=== PATIENT | male | born 1970 | race African-American/Black ===

== ENCOUNTER 2024-09-20 03:38 | Inpatient (IN) | payer MEDICAID, OTHER ==
[2024-09-20] MEDS ORDERED: KETAMINE 100 MG/ML (5ML VIAL) ONE (03:50)
[2024-09-20] MEDS ORDERED: Rocuronium Bromide 10 MG/ML (10ML VIAL) ONE (03:51)
[2024-09-20] MEDS ORDERED: CALCIUM GLUC 1 GM/NS 50 ML IV Bag ONE (03:55)
[2024-09-20 04:01] LABS: #Basophils 0.12 10x3/uL (0.0-0.2); %Basophils 0.5 % (0.0-1.0); %Eosinophils 0.9 % (0.0-10.0); %Lymphocytes 6.2 % (21.0-51.0); %Monocytes 5.8 % (0.0-10.0); %Neutrophils 83.5 % (42.0-75.0); Hematocrit 44.9 % (42.0-52.0); Hemoglobin 14.6 g/dL (14.0-18.0); Mean Corpuscular HGB CONC 32.5 g/dL (32.0-36.0); Mean Corpuscular Hemoglobin 30.9 pg (27.0-31.0); Mean Corpuscular Volume 95.1 fL (78.0-98.0); Mean Platelet Volume 9.3 fL (7.4-10.4); Platelet Count 226 10x3/uL (130-400); RBC Distribution Width 13.2 % (11.5-14.5); Red Blood Cell (RBC) Count 4.72 mill/uL (4.70-6.10)
[2024-09-20] MEDS ORDERED: Boostrix 0.5 ML (Tdap) VIAL (>/=7 yrs of age) ONE (04:04)
[2024-09-20 04:14] LABS: INR-International Normal Ratio 1.1; PTT 25.3 sec (22.9-36.1); Prothrombin Time 14.6 sec (12.0-14.7)
[2024-09-20 04:32] LABS: ALT (SGPT) 13 U/L (8-55); AST (SGOT) 19 U/L (5-34); Albumin 3.8 g/dL (3.5-5.0); Alkaline Phosphatase 98 U/L (40-110); Anion Gap 26 mmol/L (10-20); BUN (Urea Nitrogen) 8 mg/dL (8.4-25.7); Bilirubin, Total 0.4 mg/dL (0.2-1.2); Calc. Creatinine Clearance 0 mL/min (70-130); Calcium 9.5 mg/dL (7.8-10.44); Carbon Dioxide 12 mmol/L (22-29); Chloride 100 mmol/L (98-107); Estimated GFR 55; Globulin 3.8 g/dL (2.4-3.5); Glucose 217 mg/dL (70-105); Potassium 3.2 mmol/L (3.5-5.1); Protein, Total 7.6 g/dL (6.0-8.3); Sodium 135 mmol/L (136-145)
[2024-09-20] MEDS ORDERED: Dexamethasone 20 MG/5 ML VIAL ONE (05:20)
[2024-09-20] MEDS ORDERED: PHENYLEPHRINE-NS 100 MCG/ML 10 ML SYRINGE ONE (05:20)
[2024-09-20] MEDS ORDERED: Glycopyrrolate 0.2 MG/ML 5 ML SYRINGE ONE (05:20)
[2024-09-20] MEDS ORDERED: Clindamycin/D5W 900 mg/50 ml Premix Bag ONE (05:47)
[2024-09-20] MEDS ORDERED: Vecuronium 10 MG VIAL ONE (08:52)
[2024-09-20] MEDS: Propofol 1,000 MG/100 ML VIAL IV PRN (09:15)
[2024-09-20] MEDS: Fentanyl CADD 100 ML IV SCH (09:15)
[2024-09-20] MEDS ORDERED: Ondansetron PF 4 MG/2 ML Vial IVP PRN (09:17)
[2024-09-20] MEDS ORDERED: hydrALAZINE 20 MG/ML VIAL SLOW IVP PRN (09:17)
[2024-09-20] MEDS ORDERED: Morphine 4 MG/ML VIAL SLOW IVP PRN (09:22)
[2024-09-20] MEDS: Piperacillin/Tazobactam 3.375 GM in Sodium Chloride 0.9% 100 ML IVPB SCH ×2 (10:27→13:07)
[2024-09-20] MEDS ORDERED: Fentanyl BOLUS 250 ML IVPB PRN (11:00)
[2024-09-20] MEDS ORDERED: Propofol BOLUS 1,000 MG/100 ML VIAL IV PRN (11:00)
[2024-09-20] MEDS ORDERED: DISCONTINUE PREVIOUS NARCOTIC PAIN MEDICATIONS AND BENZODIAZEPINES FS SCH (11:00)
[2024-09-20] MEDS ORDERED: Piperacillin/Tazobactam 3.375 GM in Sodium Chloride 0.9% 100 ML IVPB SCH (12:00)
[2024-09-20] MEDS: FLU (Fluarix Triv) TS24-25(6MOS UP)/PF 45 MCG/0.5 ML Syringe IM ONE (12:51)
[2024-09-20] MEDS: Lactated Ringer's 1,000 ML IV SCH (13:07)
[2024-09-20 15:56] LABS: Amphetamine Not Detected (NotDetected); Barbiturates Screen Not Detected (NotDetected); Benzodiazepine Screen Not Detected (NotDetected); Cocaine Metabolite Screen Detected (NotDetected); Methadone Not Detected (NotDetected); Methamphetamine Not Detected (NotDetected); Opiate Screen Not Detected (NotDetected); Oxycodone Screen Not Detected (NotDetected); Phencyclidine (PCP) Not Detected (NotDetected); THC/Cannabinoid Screen Detected (NotDetected); Tricyclic Screen Not Detected (NotDetected)
[2024-09-20 16:56] LABS: ALT (SGPT) 13 U/L (8-55); AST (SGOT) 36 U/L (5-34); Alkaline Phosphatase 65 U/L (40-110); Anion Gap 14 mmol/L (10-20); BUN (Urea Nitrogen) 10 mg/dL (8.4-25.7); Bilirubin, Total 0.9 mg/dL (0.2-1.2); Calc. Creatinine Clearance 74 mL/min (70-130); Carbon Dioxide 21 mmol/L (22-29); Chloride 104 mmol/L (98-107); Estimated GFR 81; Glucose 123 mg/dL (70-105); Potassium 5.3 mmol/L (3.5-5.1); Sodium 134 mmol/L (136-145)
[2024-09-20 18:23] LABS: #Basophils Less than 0.03 10x3/uL (0.0-0.2); #Eosinophils Less than 0.03 10x3/uL (0.0-0.7); %Basophils 0.1 % (0.0-1.0); %Lymphocytes 6.9 % (21.0-51.0); %Monocytes 7.8 % (0.0-10.0); %Neutrophils 84.6 % (42.0-75.0); Hematocrit 32.5 % (42.0-52.0); Mean Corpuscular HGB CONC 33.8 g/dL (32.0-36.0); Mean Corpuscular Hemoglobin 31.1 pg (27.0-31.0); Mean Corpuscular Volume 91.8 fL (78.0-98.0); Mean Platelet Volume 9.7 fL (7.4-10.4); Platelet Count 155 10x3/uL (130-400); RBC Distribution Width 13.8 % (11.5-14.5); Red Blood Cell (RBC) Count 3.54 mill/uL (4.70-6.10)
[2024-09-20] MEDS: Sodium Chloride 0.9% 1,000 ML IV SCH (18:25)
[2024-09-20 18:33] LABS: INR-International Normal Ratio 1.2; PTT 27.9 sec (22.9-36.1); Prothrombin Time 15.2 sec (12.0-14.7)
[2024-09-20] MEDS: Famotidine/PF 20 mg/2ml Vial SLOW IVP SCH (21:34)
[2024-09-21 05:31] LABS: #Basophils 0.04 10x3/uL (0.0-0.2); %Basophils 0.2 % (0.0-1.0); %Eosinophils 0.4 % (0.0-10.0); %Lymphocytes 12.5 % (21.0-51.0); %Monocytes 9.1 % (0.0-10.0); %Neutrophils 77.3 % (42.0-75.0); Hematocrit 29.6 % (42.0-52.0); Mean Corpuscular HGB CONC 33.8 g/dL (32.0-36.0); Mean Corpuscular Hemoglobin 31.6 pg (27.0-31.0); Mean Corpuscular Volume 93.7 fL (78.0-98.0); Mean Platelet Volume 10.1 fL (7.4-10.4); Platelet Count 145 10x3/uL (130-400); RBC Distribution Width 13.8 % (11.5-14.5); Red Blood Cell (RBC) Count 3.16 mill/uL (4.70-6.10)
[2024-09-21 05:46] LABS: ALT (SGPT) 10 U/L (8-55); AST (SGOT) 18 U/L (5-34); Albumin 2.7 g/dL (3.5-5.0); Alkaline Phosphatase 59 U/L (40-110); Anion Gap 11 mmol/L (10-20); BUN (Urea Nitrogen) 10 mg/dL (8.4-25.7); Bilirubin, Total 0.7 mg/dL (0.2-1.2); Calc. Creatinine Clearance 79 mL/min (70-130); Calcium 8.1 mg/dL (7.8-10.44); Carbon Dioxide 24 mmol/L (22-29); Chloride 107 mmol/L (98-107); Estimated GFR 87; Globulin 2.8 g/dL (2.4-3.5); Glucose 97 mg/dL (70-105); Potassium 3.7 mmol/L (3.5-5.1); Protein, Total 5.5 g/dL (6.0-8.3); Sodium 138 mmol/L (136-145)
[2024-09-21] MEDS: Enoxaparin 40 MG (0.4 mL) SYRINGE SC SCH (09:33)
[2024-09-21] MEDS ORDERED: Iopamidol-370 76% 500 ML MDV (1 ML CHARGE) ONE (10:18)
[2024-09-21] MEDS: fentaNYL 100 mcg/hour Patch TD SCH (11:43)
[2024-09-21] MEDS: Polyethylene Glycol 3350 17 GM Packet PER TUBE SCH (11:48)
[2024-09-21] MEDS: Dexmedetomidine In 0.9 % NaCl 100 ML IV SCH (11:48)
[2024-09-21] MEDS: Lactated Ringer's 500 ML IV SCH (15:06)
[2024-09-21 15:15] LABS: #Basophils 0.05 10x3/uL (0.0-0.2); %Basophils 0.3 % (0.0-1.0); %Eosinophils 0.6 % (0.0-10.0); %Lymphocytes 12.2 % (21.0-51.0); %Monocytes 8.5 % (0.0-10.0); %Neutrophils 77.7 % (42.0-75.0); Hematocrit 26.4 % (42.0-52.0); Hemoglobin 8.8 g/dL (14.0-18.0); Mean Corpuscular HGB CONC 33.3 g/dL (32.0-36.0); Mean Corpuscular Hemoglobin 31.4 pg (27.0-31.0); Mean Corpuscular Volume 94.3 fL (78.0-98.0); Platelet Count 142 10x3/uL (130-400); RBC Distribution Width 13.9 % (11.5-14.5)
[2024-09-21 15:21] LABS: Anion Gap 12 mmol/L (10-20); BUN (Urea Nitrogen) 10 mg/dL (8.4-25.7); Calc. Creatinine Clearance 80 mL/min (70-130); Calcium 7.8 mg/dL (7.8-10.44); Carbon Dioxide 23 mmol/L (22-29); Chloride 109 mmol/L (98-107); Estimated GFR 88; Glucose 86 mg/dL (70-105); Potassium 3.5 mmol/L (3.5-5.1); Sodium 140 mmol/L (136-145)
[2024-09-21] MEDS: Docusate Sodium 100 MG/10 ML UDCUP PO SCH (21:21)
[2024-09-22] MEDS: NOREPINEPHRINE 8 MG/250 ML-D5W 250 ML ONE (01:59)
[2024-09-22] MEDS: Albumin 25% 25 GM (100 mL) BOT IVPB SCH ×2 (02:56→10:32)
[2024-09-22] MEDS: NOREPINEPHRINE 8 MG/250 ML-D5W 250 ML IVPB SCH (04:54)
[2024-09-22 07:28] LABS: #Basophils 0.05 10x3/uL (0.0-0.2); %Basophils 0.4 % (0.0-1.0); %Eosinophils 1.1 % (0.0-10.0); %Lymphocytes 12.3 % (21.0-51.0); %Monocytes 9.8 % (0.0-10.0); %Neutrophils 75.9 % (42.0-75.0); Hemoglobin 8.1 g/dL (14.0-18.0); Mean Corpuscular HGB CONC 32.4 g/dL (32.0-36.0); Mean Corpuscular Volume 95.8 fL (78.0-98.0); Mean Platelet Volume 9.8 fL (7.4-10.4); Platelet Count 141 10x3/uL (130-400); RBC Distribution Width 13.8 % (11.5-14.5); Red Blood Cell (RBC) Count 2.61 mill/uL (4.70-6.10)
[2024-09-22] MEDS: Polyethylene Glycol 3350 17 GM Packet PER TUBE SCH (08:20)
[2024-09-22] MEDS: Potassium Bicarbonate/Cit Ac 20 MEQ TAB PER TUBE SCH (10:32)
[2024-09-22 15:18] LABS: Potassium 3.9 mmol/L (3.5-5.1)
[2024-09-22] MEDS: Scopolamine 1 mg/72 hour Patch TOP SCH (18:12)
[2024-09-22] MEDS: Morphine 2 MG/ML VIAL SLOW IVP PRN (20:07)
[2024-09-22] MEDS: Bacitracin Zinc Ointment 30 gm TUBE TOP SCH (20:20)
[2024-09-22] MEDS: Lorazepam 2 MG/ML VIAL SLOW IVP PRN (23:06)
[2024-09-23 04:19] LABS: #Basophils 0.07 10x3/uL (0.0-0.2); %Basophils 0.5 % (0.0-1.0); %Lymphocytes 13.6 % (21.0-51.0); %Monocytes 11.1 % (0.0-10.0); %Neutrophils 73.3 % (42.0-75.0); Hematocrit 29.9 % (42.0-52.0); Hemoglobin 8.8 g/dL (14.0-18.0); Mean Corpuscular HGB CONC 29.4 g/dL (32.0-36.0); Mean Corpuscular Hemoglobin 31.4 pg (27.0-31.0); Mean Corpuscular Volume 106.8 fL (78.0-98.0); Mean Platelet Volume 9.8 fL (7.4-10.4); Platelet Count 168 10x3/uL (130-400); RBC Distribution Width 13.6 % (11.5-14.5)
[2024-09-23 09:06] LABS: Anion Gap 15 mmol/L (10-20); BUN (Urea Nitrogen) 8 mg/dL (8.4-25.7); Calc. Creatinine Clearance 104 mL/min (70-130); Calcium 8.3 mg/dL (7.8-10.44); Carbon Dioxide 18 mmol/L (22-29); Chloride 112 mmol/L (98-107); Estimated GFR 105; Glucose 83 mg/dL (70-105); Potassium 4.3 mmol/L (3.5-5.1); Sodium 141 mmol/L (136-145)
[2024-09-23 10:04] LABS: #Basophils 0.06 10x3/uL (0.0-0.2); %Basophils 0.4 % (0.0-1.0); %Eosinophils 1.6 % (0.0-10.0); %Lymphocytes 11.6 % (21.0-51.0); %Monocytes 10.6 % (0.0-10.0); Hematocrit 25.2 % (42.0-52.0); Hemoglobin 8.3 g/dL (14.0-18.0); Mean Corpuscular HGB CONC 32.9 g/dL (32.0-36.0); Mean Corpuscular Hemoglobin 31.7 pg (27.0-31.0); Mean Corpuscular Volume 96.2 fL (78.0-98.0); Platelet Count 180 10x3/uL (130-400); RBC Distribution Width 13.7 % (11.5-14.5); Red Blood Cell (RBC) Count 2.62 mill/uL (4.70-6.10)
[2024-09-23] MEDS: Furosemide 20 MG (2 mL) VIAL SLOW IVP SCH (12:34)
[2024-09-23] MEDS: Glycopyrrolate 0.4 MG/ 2 ML VIAL SLOW IVP SCH (12:55)
[2024-09-24 04:15] VITALS: BMI 24.5
[2024-09-24] MEDS: Furosemide 20 MG (2 mL) VIAL SLOW IVP SCH (08:31)
[2024-09-24] MEDS: Lactated Ringer's 1,000 ML IV SCH (18:29)
[2024-09-25] MEDS: Lactated Ringer's 1,000 ML IV SCH (20:57)
[2024-09-26 13:35] VITALS: BMI 23.7
[2024-09-26] MEDS ORDERED: E-Z-HD 98% W/W 340GM BOT (x-ray ONLY) ONE (13:58)
[2024-09-26] MEDS ORDERED: Barium Sulfate 96% 176 GM BOT (xray ONLY) ONE (13:58)
[2024-09-26] MEDS ORDERED: MD-Gastroview 120 ML BOT ONE (13:58)
[2024-09-26] MEDS: Ketorolac Tromethamine 30 MG (1 mL) VIAL IVP PRN (18:09)
[2024-09-27] MEDS: Morphine 2 MG/ML VIAL SLOW IVP PRN (15:49)
[2024-09-28] MEDS: hydrALAZINE 20 MG/ML VIAL SLOW IVP PRN (15:28)
[2024-09-28] MEDS ORDERED: Lidocaine 1% PF 5 ML VIAL ONE (18:58)
[2024-09-28] MEDS ORDERED: fentaNYL 50 mcg/mL 1 mL Vial ONE (19:15)
[2024-09-28] MEDS ORDERED: CEFAZOLIN 1 GM VIAL ONE (19:20)
[2024-09-29] MEDS ORDERED: hydrOXYzine 25 MG TAB PER TUBE SCH (15:00)
[2024-09-29] MEDS: risperiDONE 1 MG TAB PER TUBE SCH (19:47)
[2024-09-29] MEDS: Perphenazine 2 MG TAB PER TUBE SCH (19:47)
[2024-09-29] MEDS: Aripiprazole 10 MG TAB PER TUBE SCH (19:47)
[2024-09-29] MEDS: traZODone HCl 50 MG TAB PER TUBE SCH (19:48)
[2024-09-29] MEDS: Doxepin HCl 25 MG CAP PER TUBE SCH (19:49)
[2024-09-29] MEDS ORDERED: RISPERIDONE 4 MG PER TUBE SCH (21:00)
[2024-09-29] MEDS ORDERED: Non-Formulary Item 1 EACH (Aripiprazole [Abilify] 20 MG Tablet) PER TUBE SCH (21:00)
[2024-09-29] MEDS ORDERED: Non-Formulary Item 1 EACH (Doxepin Hcl [Doxepin Hcl] 100 MG Capsule) PER TUBE SCH (21:00)
[2024-09-29] MEDS ORDERED: Mirtazapine 30 MG TAB PER TUBE SCH (21:00)
[2024-09-29] MEDS ORDERED: risperiDONE 1 MG TAB PER TUBE SCH (21:00)
[2024-09-29] MEDS ORDERED: OXcarbazepine 150 MG TAB PER TUBE SCH (21:00)
[2024-09-30] MEDS ORDERED: Aripiprazole 10 MG TAB PER TUBE SCH (09:00)
[2024-09-30] MEDS: Citalopram 20 MG TAB PER TUBE SCH (10:04)
[2024-10-01 03:57] LABS: #Basophils 0.05 10x3/uL (0.0-0.2); %Basophils 0.5 % (0.0-1.0); %Eosinophils 2.6 % (0.0-10.0); %Lymphocytes 19.5 % (21.0-51.0); %Monocytes 10.1 % (0.0-10.0); %Neutrophils 66.6 % (42.0-75.0); Hematocrit 26.1 % (42.0-52.0); Hemoglobin 8.4 g/dL (14.0-18.0); Mean Corpuscular HGB CONC 32.2 g/dL (32.0-36.0); Mean Corpuscular Hemoglobin 31.1 pg (27.0-31.0); Mean Corpuscular Volume 96.7 fL (78.0-98.0); Mean Platelet Volume 9.4 fL (7.4-10.4); Platelet Count 361 10x3/uL (130-400); RBC Distribution Width 14.4 % (11.5-14.5)
[2024-10-01 04:34] LABS: Anion Gap 13 mmol/L (10-20); BUN (Urea Nitrogen) 8 mg/dL (8.4-25.7); Calc. Creatinine Clearance 103 mL/min (70-130); Calcium 8.4 mg/dL (7.8-10.44); Carbon Dioxide 26 mmol/L (22-29); Chloride 105 mmol/L (98-107); Estimated GFR 104; Glucose 97 mg/dL (70-105); Potassium 3.2 mmol/L (3.5-5.1); Sodium 141 mmol/L (136-145)
[2024-10-01] MEDS: Ketorolac Tromethamine 30 MG (1 mL) VIAL ONE (20:26)
[2024-10-03] MEDS: Bacitracin Zinc Ointment 30 gm TUBE TOP SCH (09:05)
[2024-10-03] MEDS ORDERED: Electrolyte Replacement Protocol 1 EACH FS SCH (16:36)
[2024-10-03] MEDS: Potassium Bicarbonate/Cit Ac 20 MEQ TAB PER TUBE SCH (17:13)
[2024-10-03] MEDS: Famotidine 20 MG TAB PER TUBE SCH (20:29)
[2024-10-04 11:40] LABS: Anion Gap 11 mmol/L (10-20); BUN (Urea Nitrogen) 9 mg/dL (8.4-25.7); Calc. Creatinine Clearance 101 mL/min (70-130); Carbon Dioxide 26 mmol/L (22-29); Chloride 107 mmol/L (98-107); Estimated GFR 103; Glucose 93 mg/dL (70-105); Potassium 4.5 mmol/L (3.5-5.1); Sodium 139 mmol/L (136-145)
[2024-10-06] MEDS ORDERED: Acetaminophen W/ Codeine 5 ML UDCUP PO PRN (10:21)
[2024-10-06] MEDS: Acetaminophen 325 MG (10.15 ML) UDCUP PO PRN (14:05)
[2024-10-07] MEDS ORDERED: Acetylcysteine 10% 100 MG/ML (30 ml) SOLN INH SCH (13:00)
[2024-10-07] MEDS: Ipratropium/Albuterol 3 ML NEB NEB SCH (20:15)
[2024-10-08] MEDS: Acetylcysteine 10% 100 MG/ML (30 ml) SOLN NEB SCH (07:33)
[2024-10-09] MEDS ORDERED: Acetaminophen/Codeine 30-300mg Tablet PO PRN (12:15)
[2024-10-09] MEDS ORDERED: Acetaminophen/Codeine 30-300mg Tablet PER TUBE PRN (12:16)
[2024-10-09] MEDS: Acetaminophen/Codeine 30-300mg Tablet PER TUBE PRN (13:21)
[2024-10-10] MEDS: Acetylcysteine 10% 100 MG/ML (30 ml) SOLN NEB SCH (00:37)
[2024-10-12] MEDS ORDERED: Enoxaparin 40 MG (0.4 mL) SYRINGE ONE (09:00)
[2024-10-12] MEDS ORDERED: Perphenazine 2 MG TAB ONE ×2 (09:00→21:00)
[2024-10-12] MEDS ORDERED: Doxepin HCl 25 MG CAP ONE (21:00)
[2024-10-12] MEDS ORDERED: traZODone HCl 50 MG TAB ONE (21:00)
[2024-10-12] MEDS ORDERED: Docusate Sodium 100 MG/10 ML UDCUP ONE (21:00)
[2024-10-12] MEDS ORDERED: Bacitracin Zinc Ointment 30 gm TUBE ONE (21:00)
[2024-10-12] MEDS ORDERED: RisperDAL M 1 MG TAB ONE (21:00)
[2024-10-12] MEDS ORDERED: Aripiprazole 10 MG TAB ONE (21:00)
[2024-10-13] MEDS ORDERED: Enoxaparin 40 MG (0.4 mL) SYRINGE ONE (09:37)
[2024-10-13] MEDS ORDERED: Citalopram 20 MG TAB ONE ×2 (09:37)
[2024-10-13] MEDS ORDERED: Perphenazine 2 MG TAB ONE ×2 (09:37→22:19)
[2024-10-13] MEDS ORDERED: Glycopyrrolate 0.4 MG/ 2 ML VIAL ONE (13:30)
[2024-10-13] MEDS ORDERED: traZODone HCl 50 MG TAB ONE (22:19)
[2024-10-13] MEDS ORDERED: Doxepin HCl 25 MG CAP ONE (22:19)
[2024-10-13] MEDS ORDERED: RisperDAL M 1 MG TAB ONE (22:19)
[2024-10-13] MEDS ORDERED: Aripiprazole 10 MG TAB ONE (22:19)
[2024-10-17 06:28] LABS: #Basophils 0.06 10x3/uL (0.0-0.2); %Basophils 0.7 % (0.0-1.0); %Eosinophils 5.6 % (0.0-10.0); %Lymphocytes 25.7 % (21.0-51.0); %Monocytes 8.4 % (0.0-10.0); %Neutrophils 58.9 % (42.0-75.0); Hematocrit 35.8 % (42.0-52.0); Hemoglobin 11.2 g/dL (14.0-18.0); Mean Corpuscular HGB CONC 31.3 g/dL (32.0-36.0); Mean Corpuscular Hemoglobin 28.9 pg (27.0-31.0); Mean Corpuscular Volume 92.3 fL (78.0-98.0); Mean Platelet Volume 9.4 fL (7.4-10.4); Platelet Count 352 10x3/uL (130-400); RBC Distribution Width 13.3 % (11.5-14.5); Red Blood Cell (RBC) Count 3.88 mill/uL (4.70-6.10)
[2024-10-17 06:51] LABS: ALT (SGPT) 60 U/L (8-55); AST (SGOT) 37 U/L (5-34); Albumin 3.5 g/dL (3.5-5.0); Alkaline Phosphatase 128 U/L (40-110); Anion Gap 11 mmol/L (10-20); BUN (Urea Nitrogen) 18 mg/dL (8.4-25.7); Bilirubin, Total 0.3 mg/dL (0.2-1.2); Calc. Creatinine Clearance 84 mL/min (70-130); Calcium 10.4 mg/dL (7.8-10.44); Carbon Dioxide 27 mmol/L (22-29); Chloride 101 mmol/L (98-107); Estimated GFR 90; Globulin 4.9 g/dL (2.4-3.5); Glucose 94 mg/dL (70-105); Magnesium 2.1 mg/dL (1.6-2.6); Potassium 4.2 mmol/L (3.5-5.1); Protein, Total 8.4 g/dL (6.0-8.3); Sodium 135 mmol/L (136-145)
[2024-10-19] MEDS: Lidocaine Viscous Sol 2% 15 ml UD Cup SSW SCH (17:31)
[2024-10-19] MEDS: Phenylephrine 1% Nasal Spray 15 ML BOT EA NARE PRN (17:31)
[2024-10-21 04:56] LABS: #Basophils 0.07 10x3/uL (0.0-0.2); %Basophils 0.8 % (0.0-1.0); %Eosinophils 5.9 % (0.0-10.0); %Lymphocytes 31.2 % (21.0-51.0); %Monocytes 10.8 % (0.0-10.0); Hematocrit 32.3 % (42.0-52.0); Hemoglobin 10.5 g/dL (14.0-18.0); Mean Corpuscular HGB CONC 32.5 g/dL (32.0-36.0); Mean Corpuscular Hemoglobin 29.9 pg (27.0-31.0); Mean Platelet Volume 9.8 fL (7.4-10.4); Platelet Count 300 10x3/uL (130-400); RBC Distribution Width 13.6 % (11.5-14.5); Red Blood Cell (RBC) Count 3.51 mill/uL (4.70-6.10)
[2024-10-21 05:00] LABS: ALT (SGPT) 35 U/L (8-55); AST (SGOT) 24 U/L (5-34); Albumin 3.2 g/dL (3.5-5.0); Alkaline Phosphatase 109 U/L (40-110); Anion Gap 14 mmol/L (10-20); BUN (Urea Nitrogen) 13 mg/dL (8.4-25.7); Bilirubin, Total 0.2 mg/dL (0.2-1.2); Calc. Creatinine Clearance 96 mL/min (70-130); Calcium 9.6 mg/dL (7.8-10.44); Carbon Dioxide 26 mmol/L (22-29); Chloride 102 mmol/L (98-107); Estimated GFR 102; Globulin 4.2 g/dL (2.4-3.5); Glucose 86 mg/dL (70-105); Potassium 4.1 mmol/L (3.5-5.1); Protein, Total 7.4 g/dL (6.0-8.3); Sodium 138 mmol/L (136-145)
[2024-10-24] MEDS ORDERED: Sterile Water 10 ML ONE (15:30)
[2024-10-24] MEDS ORDERED: Sodium Chloride 0.9% 500 ML ONE (15:31)
[2024-10-24] MEDS ORDERED: Iopamidol 100 ML FS ONE (15:31)
[2024-10-24] MEDS ORDERED: Lidocaine 2% 6 ML (Jelly) SYR ONE (15:31)
[2024-10-27 20:56] LABS: #Basophils 0.06 10x3/uL (0.0-0.2); %Basophils 0.6 % (0.0-1.0); %Eosinophils 2.8 % (0.0-10.0); %Lymphocytes 26.8 % (21.0-51.0); %Monocytes 10.1 % (0.0-10.0); Hematocrit 36.3 % (42.0-52.0); Hemoglobin 11.7 g/dL (14.0-18.0); Mean Corpuscular HGB CONC 32.2 g/dL (32.0-36.0); Mean Corpuscular Volume 93.1 fL (78.0-98.0); Mean Platelet Volume 9.8 fL (7.4-10.4); Platelet Count 313 10x3/uL (130-400)
[2024-10-28 11:14] VITALS: TEMP 97.8
[2024-10-28 11:15] VITALS: BP 107/63
== END 2024-10-28 11:10 | DRG 3 ==
LOC: EDBD 03:38 → ERS 03:38 → SDC/OP 05:05 → CCU 05:05 → SURG A 09-24 13:57
PROVIDERS: ADMIT Surgery; ATTEND Surgery
PROC: 0LQ60ZZ Repair Left Lower Arm and Wrist Tendon, Open Approach (ICD-10-PCS; principal; 2024-09-20)
PROC: 0B110F4 Bypass Trachea to Cutaneous with Tracheostomy Device, Open Approach (ICD-10-PCS; 2024-09-20)
PROC: 00Q Central Nervous System and Cranial Nerves, Repair (ICD-10-PCS; 2024-09-20)
PROC: 00Q Central Nervous System and Cranial Nerves, Repair (ICD-10-PCS; 2024-09-20)
PROC: 05QN0ZZ Repair Left Internal Jugular Vein, Open Approach (ICD-10-PCS; 2024-09-20)
PROC: 30233N1 Transfusion of Nonautologous Red Blood Cells into Peripheral Vein, Percutaneous Approach (ICD-10-PCS; 2024-09-20)
PROC: 30233K1 Transfusion of Nonautologous Frozen Plasma into Peripheral Vein, Percutaneous Approach (ICD-10-PCS; 2024-09-20)
PROC: 3E033XZ Introduction of Vasopressor into Peripheral Vein, Percutaneous Approach (ICD-10-PCS; 2024-09-21)
PROC: 30233J1 Transfusion of Nonautologous Serum Albumin into Peripheral Vein, Percutaneous Approach (ICD-10-PCS; 2024-09-22)
PROC: 5A1945Z Respiratory Ventilation, 24-96 Consecutive Hours (ICD-10-PCS; 2024-09-28)
PROC: 0DH63UZ Insertion of Feeding Device into Stomach, Percutaneous Approach (ICD-10-PCS; 2024-09-28)
DX: S15.3 Injury of internal jugular vein (principal); J96.90 Respiratory failure, unspecified, unspecified whether with hypoxia or hypercapnia; T79.4XXA Traumatic shock, initial encounter; S11.021A Laceration without foreign body of trachea, initial encounter; S11.21XA Laceration without foreign body of pharynx and cervical esophagus, initial encounter; N17.9 Acute kidney failure, unspecified; S04.891 Injury of other cranial nerves, right side; S51.812A Laceration without foreign body of left forearm, initial encounter; Z79.899 Other long term (current) drug therapy; E87.6 Hypokalemia; X78.9XXA Intentional self-harm by unspecified sharp object, initial encounter
CPT/HCPCS: 36415; 36416; 36430; 49452; 70498; 71045; 74018; 74220; 80048; 80053; 80306; 83735; 84132; 85025; 85610; 85730; 86850; 86900; 86901; 90471; 90715; 94002; 94003; 94640; 94760; 96365; 97139; B4087; B4088; C1713; C1725; C1769; G0390; J0360; J0613; J0690; J1100; J1650; J1885; J1940; J2060; J2272; J2543; J2704; J3010; J3490; J7030; J7120; J7608; J7620; P9016; P9047; P9048; Q0175; Q9963; Q9967